=== PATIENT | female | born 1990 | race Caucasian/White ===

== ENCOUNTER 2016-10-26 21:17 | Emergency (ER) | payer SELFPAY ==
[~2016-10-26 21:17] MED LIST: CIPRO PO; CIPRO500 MG/5 M PO; COLACE PO; LORTAB 7.51 TAB 7.5/; NO MEDICATIONS; OXYCODONE HCL5 MG
[2016-10-26] MEDS ORDERED: NO MEDICATIONS (21:46)
== END 2016-10-26 23:30 | disposition home or self-care (01) ==
LOC: SED 21:17
DX: N64.89 Other specified disorders of breast (principal); F17.210 Nicotine dependence, cigarettes, uncomplicated
CPT/HCPCS: 99282